=== PATIENT | female | born 1980 | race African-American/Black ===

== ENCOUNTER 2020-02-02 19:10 | Emergency (ER) | payer OTHER ==
[~2020-02-02] VITALS: Ht 170.2 cm; Wt 62.6 kg
--- NOTE | 2020-02-02 19:25 | NUR ---
called pt in waiting room. no one in waiting room responded. will follow up
--- NOTE | 2020-02-02 19:52 | NUR ---
pt bibself c/o high blood pressure was on clonidine and Chlorothiazide. pt states stressed at work. pt aox4 rr even and unlabored. no sob noted. no nvd at this time. pt waiting for md tubbs.
[2020-02-02] MEDS ORDERED: hydrALAZINE HCL IV 20 MG VIAL ONE (20:25)
[2020-02-02] MEDS ORDERED: hydrALAZINE HCL IV 20 MG VIAL IV ONE (20:30)
[2020-02-02] MEDS ORDERED: IV NS 0.9% 1,000 ML BAG IV ONE (20:30)
--- NOTE | 2020-02-02 21:26 | NUR ---
informed PAC césar about current bp and c/o feeling anxious.
[2020-02-02] MEDS ORDERED: LORAZEPAM INJ 2 MG/ML VIAL ONE (22:09)
[2020-02-02] MEDS ORDERED: LORAZEPAM INJ 2 MG/ML VIAL IV ONE (22:30)
[2020-02-02 23:01] LABS: BASOPHILS % (AUTO) 0.3 % (0.0-2.0); EOSINOPHILS % (AUTO) 0.7 % (0.0-6.0); HEMATOCRIT 42 % (33-45); HEMOGLOBIN 13.7 g/dL (11.5-14.8); LYMPHOCYTES # (AUTO) 1.3 /CMM (0.8-4.8); LYMPHOCYTES % (AUTO) 22.7 % (20.0-44.0); MEAN CORPUSCULAR HGB CONC 32 g/dl (31.0-36.0); MEAN CORPUSCULAR VOLUME 98 fL (82-100); MONOCYTES # (AUTO) 0.4 /CMM (0.1-1.30); MONOCYTES % (AUTO) 6.7 % (2.0-12.0); NEUTROPHILS # (AUTO) 3.9 /CMM (1.8-8.9); NEUTROPHILS % (AUTO) 69.6 % (43.0-81.0); PLATELET COUNT (AUTO) 251 /CMM (150-450); RED BLOOD CELL COUNT(AUTO) 4.33 MIL/uL (4.0-5.2); WHITE BLOOD COUNT (AUTO) 5.6 K/uL (4.3-11.0)
[2020-02-02 23:10] LABS: CALCIUM, SERUM 9.1 mg/dL (8.5-10.1); CREATININE 0.8 mg/dL (0.6-1.3); POTASSIUM 3.5 mmol/L (3.5-5.1)
--- NOTE | 2020-02-02 23:18 | NUR ---
PAC SILVER AT BEDSIDE SPEAKING TO PT REGARDING PLAN OF CARE.
--- NOTE | 2020-02-03 01:06 | NUR ---
PT APPERS COMFORTABLE, AMBULATORY TO RESTROOM WITH STEADY GAIT. SITTER WITH IN LINE OF SIGHT FOR SAFETY PRECAUTION.
--- NOTE | 2020-02-03 02:02 | NUR ---
IV removed. Catheter intact and site benign. Pressure and 4x4 applied to site. No bleeding noted. Patient discharged to home in stable condition. Written and verbal after care instructions given. Patient verbalizes understanding of instruction. pt ambulatory with a steady gait. pt instructed not to drive. pt verbalized understanding.
[2020-02-03 02:03] VITALS: BP 139/87
== END 2020-02-03 02:04 | disposition home or self-care (01) ==
LOC: ER 19:16
DX: I10 Essential (primary) hypertension (principal); F41.9 Anxiety disorder, unspecified; R00.0 Tachycardia, unspecified
CPT/HCPCS: 36415; 80048; 85025; 96374; 96375; 99285; J0360; J2060